=== PATIENT | male | born 2005 | race Caucasian/White ===

== ENCOUNTER 2024-01-04 09:42 | Emergency (ER) | payer OTHER, SELFPAY ==
[2024-01-04] VITALS (10 sets, daily range): BP systolic 132–151; BP diastolic 86–104; PULSE 104–128; RESP 16–25; TEMP 37–37.1; O2SAT 92–99
--- NOTE | ~2024-01-04 | XR_ITS ---
EXAMINATION: XR chest 2V DATE: 01/04/2024 10:43 INDICATION: Cough and shortness of breath. TECHNIQUE: Frontal and lateral views of the chest were obtained on 4 radiographs. COMPARISON: Chest 2 views 04/28/2006 FINDINGS: There is no pneumonia, pleural effusion, or pneumothorax. The heart size is normal. IMPRESSION: 1. No acute cardiopulmonary disease. Reviewed, dictated and finalized at location A.
--- NOTE | 2024-01-04 09:56 | ECG_ITS ---
Test Date: 2024-01-04 09:51:54 Measurements Intervals [place] Rate: 113 P: 68 [place]: 213 QRS: 62 QRSD: 100 T: 50 QT: 308 QTc: 423 Interpretive Statements SINUS TACHYCARDIA WITH FIRST DEGREE AV BLOCK BORDERLINE ECG No previous ECG available for comparison Electronically Signed On 01-05-2024 13:27:00 CDT by Vance Herrera M.D.
--- NOTE | 2024-01-04 09:57 | PC.NURSE ---
pt refuses to have an IV or labs drawn at this time
--- NOTE | 2024-01-04 09:57 | ED.SOB ---
HPI - SOB/Dyspnea General Chief Complaint: Shortness of Breath/Dyspnea Stated Complaint: sob Time Seen by Provider: 01/04/24 09:44 History of Present Illness HPI Narrative: 18-year-old male history of asthma presents to the emergency room for evaluation of shortness of breath and difficulty breathing since this morning. Patient states he has been experiencing nasal congestion, postnasal drip, nonproductive cough for 3 days. Has taken multiple [id number] medications with no relief or improvement of the symptoms. denies chest pain, palpitations or f Related Data Allergies Allergy/AdvReac Type Severity Reaction Status Date / Time No Known Allergies Allergy Verified 01/04/24 10:06 Review of Systems Review of Systems: ROS unremarkable except for noted in HPI Exam Narrative: GENERAL: Well-appearing, well-nourished, no physical limitations, and in Mild respiratory distress, morbidly obese HEAD: Normocephalic, atraumatic. EYES: Conjunctivae normal, PERRLA and EOMI. ENT: External nose normal, Nares clear, no rhinorrhea or epistaxis. Mucous membranes moist. Oropharynx without tonsillar hypertrophy exudate or other lesions. External ears normal, bilateral TMs normal bilaterally CHEST: decreased breath sounds throughout No wheezes rales or rhonchi. HEART: tachycardic and regular rhythm. No murmur heard. Normal peripheral pulses. EXTREMITIES: Normal range of motion. No edema. No clubbing or cyanosis SKIN: Warm, dry, no rash. No noted wounds NEURO: No focal deficits. Alert and oriented x3. MAEW. CN's II-XI intact bilaterally, normal gait PSYCH: Cooperative. Normal mood and affect. Course Vital Signs Vital signs: Vital Signs Temperature 37.0 C 01/04/24 09:49 Pulse Rate 124 H 01/04/24 09:49 Respiratory Rate 25 H 01/04/24 09:49 Blood Pressure 151/104 H 01/04/24 09:49 Pulse Oximetry 94 01/04/24 09:49 Oxygen Delivery Room Air 01/04/24 09:49 Temperature 37.0 C 01/04/24 09:49 Pulse Rate 124 H 01/04/24 10:31 Respiratory Rate 20 01/04/24 10:31 Blood Pressure 142/92 H 01/04/24 10:05 Pulse Oximetry 93 01/04/24 10:05 Oxygen Delivery Room Air 01/04/24 09:58 MDM - SOB/Dyspnea MDM Narrative Medical decision making narrative: 18-year-old male with a remote history of asthma presents emergency room for evaluation of shortness of breath chest tightness. Chest x-ray shows no evidence of acute cardiopulmonary disease. Viral panel shows no evidence of COVID, flu RSV. Patient was given a breathing treatment and dexamethasone. States an improvement in his breathing status following the breathing treatment. Likely asthma exacerbation related to a viral URI. Lab Data Labs: Lab Results 01/04/24 Range/Units 10:03 Influenza A (RT-PCR) Negative (Negative) Influenza B (RT-PCR) Negative (Negative) RSV (RT-PCR) Negative (Negative) SARS-CoV-2 RNA (RT-PCR) Negative (Negative) Discharge Plan Discharge Clinical Impression: Acute bronchitis with asthma Patient Disposition: Home, Self-Care Condition: Stable Instructions: Antibiotic Form, Asthma (ED), Acute Bronchitis (ED) Prescriptions: New albuterol sulfate 90 mcg/actuation HFA aerosol inhaler 1 inh inhalation QID Qty: 8.5 0RF prednisone 20 mg tablet 60 mg PO DAILY 5 Days Qty: 15 0RF pseudoephedrine HCl [Nasal Decongestant (pseudoeph)] 30 mg tablet 30 mg PO Q4-6H PRN (Reason: nasal congestion) Qty: 48 0RF Rx Instructions: DNExceed 4 doses/24h Follow-up/Referrals: Geovanny,Morena Stevenson MD [Primary Care Provider] - Time of Disposition: 11:15
[2024-01-04] MEDS: dexAMETHasone SOD PHOS INJ 10 MG/ML 1 ML VIAL IM (10:14)
[2024-01-04] MEDS: LEVALBUTEROL NEB 1.25 MG/3 ML 2.5 MG INHALATION (10:17)
[2024-01-04 10:42] LABS: Influenza A QL RT-PCR Negative (Negative); Influenza B QL RT-PCR Negative (Negative); RSV RNA, RT-PCR Negative (Negative); SARS-CoV-2 RNA PCR Negative (Negative)
== END 2024-01-04 11:32 | disposition home or self-care (01) ==
PROVIDERS: Emergency Provider Nurse Practitioner Family; PCP Pediatrics
DX: J20.9 Acute bronchitis, unspecified (principal); J45.909 Unspecified asthma, uncomplicated; Z20.822 Contact with and (suspected) exposure to COVID-19
CPT/HCPCS: 71046; 87637; 93005; 94640; 96372; 99284; J1100